=== PATIENT | male | born 1975 | race Caucasian/White ===

== ENCOUNTER → 2018-09-14 | Outpatient (CLI) | payer OTHER, MEDICARE ==
[~2018-09-14] MED LIST: ATIVAN1 M1 PO; CARAFATE 1 GM TA1 G1; DEPO-TESTO100 MG/1 M IM; GABAPENTIN 100100 MG; PRILOSEC40 MG; PROZAC40 MG; VICODIN 5-5001 EACH PO; WELLBUTRIN 75 M75 M1
== END ==
LOC: M.ULTRA 09:17
DX: K76.0 Fatty (change of) liver, not elsewhere classified (principal); R10.11 Right upper quadrant pain; R11.0 Nausea

== ENCOUNTER → 2018-10-05 | Outpatient (CLI) | payer OTHER, MEDICARE | LOC: M.NUC 07:32 | DX: R10.11 Right upper quadrant pain (principal) ==

== ENCOUNTER 2018-12-30 19:23 | Inpatient (IN) | payer OTHER, MEDICARE ==
[~2018-12-30] VITALS: Ht 180.3 cm; Wt 103.4 kg
[~2018-12-30 19:23] MED LIST changes: -CARAFATE 1 GM TA1 G1; +CARAFATE 1 GM TA1 G1 PO; +NEXIUM 24HR20 M2 PO; -PRILOSEC40 MG; -PROZAC40 MG; +PROZAC40 MG PO; -WELLBUTRIN 75 M75 M1; +WELLBUTRIN 75 M75 M1 PO
[2018-12-30] MEDS ORDERED: MS CONTIN15 MG PO (19:42)
[2018-12-30] MEDS ORDERED: CYCLOBENZAPRINE5 MG PO (19:44)
[2018-12-30 19:45] VITALS: BP 153/101
[2018-12-30] MEDS ORDERED: MYSOLINE50 MG PO (19:50)
[2018-12-30 20:04] LABS: ABSOLUTE LYMPHOCYTES 2.2 thou/uL (0.8-5.3); ABSOLUTE MONOCYTES 0.9 thou/uL (0.0-1.2); ABSOLUTE NEUTROPHILS 8.2 thou/uL (1.6-8.1); BASOPHILS 0.2 %; EOSINOPHILS 0.3 %; HEMATOCRIT 48.8 % (42.0-52.0); HEMOGLOBIN 16.7 gm/dL (14.0-18.0); MCH 31.5 pg (26.0-34.0); MCHC 34.1 g/dL (28.0-37.0); MCV 92.4 fL (80.0-100.0); MPV 8.5 fl. (7.2-11.1); NUCLEATED RBCS 0 /100WBC; PLATELET COUNT* 211 thou/uL (150-400); POLYS 72.5 %; RBC 5.28 mil/uL (4.50-6.00); RDW-CV 14.7 % (10.5-14.5); WBC 11.4 thou/uL (4.0-11.0)
[2018-12-30 20:21] LABS: ALBUMIN 3.7 g/dL (3.4-5.0); ALKALINE PHOSPHATASE 77 U/L (46-116); ANION GAP 4 mmol/L (7-16); BUN 12 mg/dL (7-18); CALCIUM 8.8 mg/dL (8.5-10.1); CHLORIDE 100 mmol/L (98-107); CO2 35 mmol/L (21-32); CREATININE 1.6 mg/dL (0.6-1.3); GLUCOSE 96 mg/dL (70-99); LIPASE 113 U/L (73-393); POTASSIUM 3.9 mmol/L (3.5-5.1); SGOT 21 U/L (15-37); SGPT 36 U/L (30-65); SODIUM 139 mmol/L (136-145); TOTAL BILIRUBIN 0.3 mg/dL (<0.1-1.0); TROPONIN-I LEVEL <0.06 ng/mL (<0.06)
[2018-12-30 20:26] LABS: SALICYLATE < 2.8 mg/dL (2.8-20.0)
[2018-12-30 20:27] LABS: ACETAMINOPHEN < 2 ug/mL (10-30); ALCOHOL < 10 mg/dL (<10)
--- NOTE | 2018-12-30 21:46 | NUR ---
PT SCORED 0 ON [facility], BUT STATEMENTS OF CONFUSION; ASKED "WHERE IS THE RABBIT? WE BROUGHT THE RABBIT IN", ALSO COMMENTED ON HOW THE TEST WITH THE PURPLE TRIANGLE WAS HARD; SPOUSE AT THE BEDSIDE REPORTS NO CHANGE IN MEDS, MISSED A DOSE OF MEDS YESTERDAY, TOOK MEDS TODAY; PT CURRENTLY RESTING EYES CLOSED
[2018-12-30 22:38] VITALS: BP 117/91
[2018-12-31 04:00] VITALS: BP 122/93
--- NOTE | 2018-12-31 04:05 | NUR ---
ASSUMED PT CARE AT 1930. ASSESSMENT COMPLETED CHARTED. ABLE TO MAKE NEEDS KNOWN. PT IS CONFUSED, IMPULSIVE AT TIMES, FORGETTING THAT HE IS IN THE HOSPITAL. NO C/O PAIN AT THE TIME OF ASSESSMENT BUT HAS CHRONIC BACK PAIN. PT RESTING IN BED AT THIS TIME. WILL CONTINUE TO MONITOR.
[2018-12-31 08:00] VITALS: BP 143/102
[2018-12-31 08:41] LABS: BE 2.5 mmol/L (-2 to +3); PCO2 48.5 mmHg (35.0-45.0); PO2 77.5 mmHg (75.0-100.0); pH 7.387 (7.340-7.450)
[2018-12-31] MEDS ORDERED: SYNTHROID300 MCG PO (09:34)
--- NOTE | 2018-12-31 10:10 | EKG ---
[place] [address] ELECTROCARDIOGRAM REPORT Name: ROSENDO LAGUNA Room: [address] ADM IN .R.#: [id number] Admission: 12/30/18 Attend Phys: Karla Dean Discharge: Date of : 73 Report #: [id number] THIS REPORT FOR: //name// [facility] ED Test Date: 2018-12-30 Test Time: 21:40:02 Pat Name: ROSENDO LAGUNA Department: Room: [facility] Gender: M Health Education Director: ROSARIO : 1975 Requested By: Sondra Shabazz Order Number: [id number] MD: Rodrick Law Measurements Intervals [place] Rate: 99 P: 38 [place]: 152 QRS: -1 QRSD: 85 T: 5 QT: 320 QTc: 411 Interpretive Statements Sinus rhythm No previous ECG available for comparison Electronically Signed On 12-31-2018 10:10:11 COMMUNITY ENGAGEMENT SPECIALIST by Rodrick Law [email or web address] <ELECTRONICALLY SIGNED> By: Rodrick Law MD, [facility] 12/31/18 1010 [id number] Rodrick Law MD, FACC /EPI
[2018-12-31 12:00] VITALS: BP 126/90
[2018-12-31 12:32] LABS: URINE BILIRUBIN NEGATIVE (Negative); URINE BLOOD NEGATIVE (Negative); URINE CLARITY CLEAR; URINE COLOR YELLOW; URINE GLUCOSE-RANDOM NEGATIVE (Negative); URINE KETONES NEGATIVE (Negative); URINE LEUKOCYTES-REFLEX NEGATIVE (Negative); URINE NITRITE-REFLEX NEGATIVE (Negative); URINE PROTEIN NEGATIVE (Negative); URINE SPECIFIC GRAVITY 1.015 (1.005-1.030); URINE UROBILINOGEN 0.2 E.U./dl (0.2-1.0)
[2018-12-31 12:39] LABS: AMP/METHAMP Negative (Negative); BARBITURATES POSITIVE (Negative); BENZODIAZEPINES Negative (Negative); COCAINE Negative (Negative); METHADONE Negative (Negative); OPIATES POSITIVE (Negative); PCP Negative (Negative); THC Negative (Negative)
--- NOTE | 2018-12-31 13:58 | NUR ---
Pt is A&O. Resides at home with his and kids. Normally independent, available to assist as needed. Pt has a cane that he can use if needed. No hx of HH or SNF. Goal is home at or, following.
[2018-12-31] MEDS ORDERED: MS CONTIN15 MG PO (15:16)
[2018-12-31] MEDS ORDERED: ATIVAN1 MG PO (15:16)
[2018-12-31] MEDS ORDERED: CYCLOBENZAPRINE5 MG PO (15:16)
[2018-12-31] MEDS ORDERED: PERCOCET 7.5-31 EACH PO (15:16)
[2018-12-31 17:12] VITALS: BP 126/90
--- NOTE | 2018-12-31 17:55 | NUR ---
RECEIVED REPORT FROM SUSANA GAITAN. ASSUMED CARE OF PT AROUND 0730. PT A&O X4, VSS. O2 SAT >90% ON RA. AM ASSESSMENT AND VITALS COMPLETED CHARTED. DIRECTOR OF FIELD COORDINATION IN PLACE TRACING SR TO ST THIS SHIFT WITH NO CHANGES. PT REPORTED BACK PAIN THAT WAS MANAGED WITH PO AND IV PAIN MEDICATION WITH PARTIAL RELIEF- PT STATES HE HAS "CHRONIC PAIN". PT TOLERATING DIET. AT BEDSIDE THROUGHOUT SHIFT. NEURO CONSULTED. BP ELEVATED THIS AM - DOCTOR AWARE, NO ORDERS RECEIVED. PT UP TO THE BATHROOM WITH ASSIST X1, VOIDING WITHOUT ISSUE. PT REQUESTED TO GO HOME AND FOLLOW UP WITH PCP - DR DUKE NOTIFIED. DISCHARGE ORDERS RECEIVED. DISCHARGE COMPLETED DOCUMENTED. DISCHARGE SUMMARY GONE OVER WITH PT, PT COMMUNICATES UNDERSTANDING. PT AWARE TO CHECK BP AT HOME BID AND TO DRINK MORE FLUIDS. IV AND DIRECTOR OF FIELD COORDINATION REMOVED. ALL BELONGS GATHERED AND SENT HOME WITH THE PT. PT LEFT UNIT WALKING WITH NURSING STAFF. PT LEFT FACILITY IN CAR WITH SPOUSE.
--- NOTE | 2019-01-01 13:46 | CON ---
[address] [address] CONSULTATION Name: ROSENDO LAGUNA Room: [address] IN .R.#: [id number] Admission: 12/30/18 Attend Phys: Karla Dean Discharge: 12/31/18 Date of : 73 Report #: [id number] THIS REPORT FOR: //name// CC: Dione Lee DATE OF SERVICE: 12/31/2018 NEUROLOGY CONSULTATION HISTORY OF PRESENT ILLNESS: The patient is a 43-year-old male who was brought to the Emergency Room by his yesterday. The patient was confused. His states that she would speak to him and he would just stare out into space. He also seemed to be stumbling and dozing. The patient has chronic back pain. He has a neurostimulator placed and is seen by the neurosurgeon at [facility] and Neurology at [facility]. In the Emergency Room, he was noted to have focal like seizure activity with altered mental status. No postictal state was present. An EEG was ordered for today. While the patient was in the Emergency Room, his blood pressure was as high as 153/101. The patient tells me that there is a strong family history of heart disease and hypertension. In fact, he has had some elevated blood pressures with pressures as high as 170/120; however, his blood pressure comes up and then it goes down. PAST MEDICAL HISTORY: Altered mental status, anxiety, gastroesophageal reflux, chronic back pain and hypothyroidism. PAST SURGICAL HISTORY: Back surgery, spinal cord stimulator, tonsillectomy, shoulder surgery. MEDICATIONS AT HOME: Carafate, testosterone, Prozac 60 mg daily, Nexium 20 mg daily, bupropion 150 mg daily, morphine sulfate ER 15 mg q. 6 hours, cyclobenzaprine 10 mg t.i.d., primidone 150 mg t.i.d., Synthroid 300 mcg daily. ALLERGIES: None. PHYSICAL EXAMINATION: VITAL SIGNS: Temperature 36.4, pulse rate 81, respiratory rate 16, blood pressure 143/102. NEUROLOGIC: Cranial nerves 2-12 are grossly intact. Motor exam demonstrates symmetrical strength in all 4 extremities with tone and bulk normal. Reflexes are symmetrical throughout. Plantar responses are flexor. Coordination reveals intact [id number] [address] CONSULTATION Name: ROSENDO LAGUNA Room: [address]#: [id number] Admission: 12/30/18 Attend Phys: Karla Dean Discharge: 12/31/18 Date of : 73 Report #: [id number] LABORATORY DATA: White blood cell count 11.4, hemoglobin 16.7, hematocrit 48.8, MCV 92.4, platelet count 211. Chemistry: Sodium 134, potassium 3.9, chloride 100, carbon dioxide 35, BUN 12, creatinine 1.6, GFR 47, glucose 96. Liver functions normal. IMAGING: CT scan of the head normal. IMPRESSION: This patient has had altered mental status. He has now returned to his baseline. It is difficult to know whether the episode yesterday was secondary to a medication effect; however, he states he took no extra doses of medication and has been on these medications for several years. The patient also has hypertension and is hypertensive this afternoon. I recommended to him that he buy a blood pressure cuff and monitor his pressure randomly throughout the day. Certainly if his pressure were high enough, that could cause him to be confused. The patient could also potentially have sleep apnea and perhaps should be checked for sleep apnea as an outpatient. The electroencephalogram is normal. I do not think this patient has a seizure disorder. I thank you for your kind referral of the patient. <ELECTRONICALLY SIGNED> By: Ludivina Elizabeth DO 01/01/19 1346 [id number] [id number] Elizabeth DO /nt
--- NOTE | 2019-01-03 12:49 | EEG ---
[address] [address] EEG STUDY REPORT Name: SARITHASURESHROSENDO Room: [address]#: [id number] Admission: 12/30/18 Attend Phys: Karla Dean Discharge: 12/31/18 Date of : 73 Report #: [id number] THIS REPORT FOR: //name// CC: Dione Lee DATE OF SERVICE: 12/31/2018 HISTORY: The patient presents with episodes of altered mental status. An EEG is requested for further evaluation. DESCRIPTION: Using the 10-20 electrode system, an electroencephalogram was performed at the bedside. The posterior dominant rhythm is approximately 9 Hz and attenuates with eye opening. No significant sleep was recorded. No focal abnormalities or epileptiform discharges were noted. Hyperventilation was not performed. Photic stimulation was non-activating. IMPRESSION: This is a normal adult awake record. No focal abnormalities or epileptiform discharges were noted. <ELECTRONICALLY SIGNED> By: Ludivina Elizabeth DO 01/03/19 1249 1346 [id number] Elizabeth DO /nt
== END 2018-12-31 17:35 | disposition home or self-care (01) | DRG 101 ==
LOC: M.ERS 19:23 → M.TBA-ER 20:30 → M.ERS 20:30 → M.2W 22:04 → M.TBA-ER 22:04 → M.2W 23:07
PROVIDERS: Internal Medicine; Nurse Practitioner Family; ADMIT Internal Medicine
DX: R56.9 Unspecified convulsions (principal); F41.9 Anxiety disorder, unspecified; R40.4 Transient alteration of awareness; G89.29 Other chronic pain; M54.9 Dorsalgia, unspecified; K21.9 Gastro-esophageal reflux disease without esophagitis; E03.9 Hypothyroidism, unspecified; F17.220 Nicotine dependence, chewing tobacco, uncomplicated; K22.70 Barrett's esophagus without dysplasia

== ENCOUNTER → 2019-06-08 | Outpatient (CLI) | payer OTHER, MEDICARE ==
[~2019-06-08] MED LIST changes: +ATIVAN1 MG PO; +CYCLOBENZAPRINE5 MG PO; +MS CONTIN15 MG PO; +MYSOLINE50 MG PO; +PERCOCET 7.5-31 EACH PO; +SYNTHROID300 MCG PO
== END ==
LOC: M.RAD 11:18
DX: M25.522 Pain in left elbow (principal); Z88.8 Allergy status to other drugs, medicaments and biological substances

== ENCOUNTER 2020-04-22 19:05 | Emergency (ER) | payer OTHER, MEDICARE ==
[~2020-04-22] VITALS: Ht 182.9 cm; Wt 95.3 kg
[2020-04-22 20:42] VITALS: BP 110/73
== END 2020-04-22 20:42 | disposition home or self-care (01) ==
LOC: M.ERS 19:05
DX: S71.111A Laceration without foreign body, right thigh, initial encounter (principal); F41.9 Anxiety disorder, unspecified; Z90.89 Acquired absence of other organs; Z79.899 Other long term (current) drug therapy; W26.8XXA Contact with other sharp object(s), not elsewhere classified, initial encounter; Y93.89 Activity, other specified; Y92.89 Other specified places as the place of occurrence of the external cause; Y99.8 Other external cause status